=== PATIENT | female | born 1955 | race Caucasian/White ===

== ENCOUNTER 2016-09-14 22:42 | Emergency (ER) | payer OTHER ==
[2016-09-15] MEDS ORDERED: FENTANYL CITRATE INJ/PF 100 MCG/2 ML AMPUL IV ONE ×2 (02:23→04:37)
[2016-09-15] MEDS ORDERED: NORMAL SALINE 500 ML IV ONE (03:16)
[2016-09-15] MEDS ORDERED: PROPOFOL INJ 200 MG/20 ML VIAL IV ONE (03:18)
--- NOTE | 2016-09-15 03:19 | RADIOLOGY REPORT (SQ) ---
EXAM DESCRIPTION: ANKLE RIGHT COMPLETE COMPLETED DATE/TIME: 09/15/2016 2:59 am REASON FOR STUDY: fall COMPARISON: None. NUMBER OF VIEWS: Three views. TECHNIQUE: AP, lateral, and oblique radiographic images acquired of the right ankle. LIMITATIONS: None. FINDINGS: MINERALIZATION: Normal. BONES: Comminuted intra-articular fracture of the right distal tibia and fibula with complete posteri or dislocation of the talotibial joint. The tibial fracture component involves the medial malleolus, posterior malleolus, and lateral tibial plafond with up to 1.1 cm distraction. The comminuted dista l fibular fracture measures 6.5 cm in length extending into the lateral malleolus with moderate media l angulation. No evidence of healing. Small to moderate calcaneal enthesophytes. Moderate ankle sw elling. JOINTS: No effusions. SOFT TISSUES: No soft tissue swelling. No foreign body. OTHER: No other significant finding. IMPRESSION: Comminuted intra-articular fracture of the right distal tibia and fibula with complete p osterior dislocation of the talotibial joint. TECHNICAL DOCUMENTATION: JOB ID: [id number] [employer]- All Rights Reserved
--- NOTE | 2016-09-15 04:41 | RADIOLOGY REPORT (SQ) ---
EXAM DESCRIPTION: ANKLE RIGHT AP/LATERAL COMPLETED DATE/TIME: 09/15/2016 4:28 am REASON FOR STUDY: post reduction COMPARISON: Same day, 0244 hours. NUMBER OF VIEWS: Two views. TECHNIQUE: AP and lateral radiographic images acquired of the right ankle. LIMITATIONS: None. FINDINGS: MINERALIZATION: Normal. BONES: Interval reduction near anatomic alignment of distal right tibial and fibular fractures and ta lotibial joint postreduction as seen through casting -bandaging material. There is 0.4 cm residual d istraction of fibular fragments. JOINTS: No effusions. SOFT TISSUES: No soft tissue swelling. No foreign body. OTHER: No other significant finding. IMPRESSION: Interval reduction of right ankle fractures and previous dislocation as seen through rony ting-bandaging material. TECHNICAL DOCUMENTATION: JOB ID: [id number] [employer]- All Rights Reserved
[2016-09-15] MEDS ORDERED: HYDROCODONE/ACETAMINOPHEN 5-325 MG 6 TAB/DSPK PO PRN (05:13)
--- NOTE | 2016-09-15 05:18 | ER Document Report ---
ED General - General Chief Complaint: Ankle Injury Stated Complaint: FALL/ANKLE PAIN Time Seen by Provider: 09/15/16 02:16 Notes: Patient is a 61-year-old female presents with complaint of her right ankle. Patient says she slipped going down the steps and felt a pop in her right ankle. She has been unable to bear weight since. No injury to her knee or hip or pelvis. No other complaints at this time. She complains of some tingling sensation in her foot. TRAVEL OUTSIDE OF THE [place] IN LAST 30 DAYS: No - Related Data Allergies/Adverse Reactions: amoxicillin Allergy (Verified 09/14/16 22:53) Past Medical History - Social History Smoking Status: Never Smoker Chew tobacco use (# tins/day): No Frequency of alcohol use: None Drug Abuse: None Family History: Reviewed & Not Pertinent Patient has suicidal ideation: No Patient has homicidal ideation: No Renal/ Medical History: Denies: Hx Peritoneal Dialysis Review of Systems - Review of Systems Notes: My Normal Review Basic REVIEW OF SYSTEMS: CONSTITUTIONAL : Denies fever, chills, or sweats. Denies recent illness. RESPIRATORY: Denies cough, cold, or chest congestion. Denies shortness of breath, difficulty breathing, or wheezing. GASTROINTESTINAL: Denies abdominal pain. Denies nausea, vomiting, or diarrhea. Denies constipation. Last BM: MUSCULOSKELETAL: Right ankle pain. SKIN: Denies rash or skin lesions. NEUROLOGICAL: Denies altered mental status or loss of consciousness. Denies headache. Denies weakness or paralysis or loss of use of either side. Denies problems with gait or speech. Denies sensory or motor loss. ALL OTHER SYSTEMS REVIEWED AND NEGATIVE. Physical Exam - Vital signs Vitals: Temp Pulse Resp BP Pulse Ox 98.3 F 72 19 151/80 H 96 09/14/16 22:51 09/14/16 22:51 09/14/16 22:51 09/14/16 22:51 09/14/16 22:51 - Notes Notes: General Appearance: Well nourished, alert, cooperative, no acute distress, moderate obvious discomfort. Vitals: reviewed, See vital signs table. Head: no swelling or tenderness to the head Eyes: PERRL, EOMI, Conjuctiva clear Mouth: No decreasd moisture Lungs: No wheezing, No rales, No rhonci, No accessory muscle use, good air exchange bilaterally. Heart: Normal rate, Regular rythm, No murmur, no rub Extremities: strength 5/5 in all extremities, good pulses in all extremities, obvious deformity to the right ankle with some bruising. Sarahy tender with any touch or movement of right ankle. No pain to palpation of right knee or fibular head.good capilary refil in toes of right foot. Good pedal pulses. Hips are nontender., no edema. Skin: warm, dry, appropriate color, no rash Neuro: speech clear, oriented x 3, normal affect, responds appropriately to questions. distal sensaiton intact. Course - Vital Signs Vital signs: Temp Pulse Resp BP Pulse Ox 97.6 F 94 18 120/77 100 09/15/16 05:45 09/15/16 05:45 09/15/16 05:45 09/15/16 05:45 09/15/16 05:45 Procedures - Conscious Sedation Conscious sedation Consent obtained: Yes Prior complications: Procedural sedation Pt with a mild systemic disease.: P2. - ASA Classification. Airway Evaluation: Normal anatomy Mallampati Classification: Class 1 Used during procedure: Suction available, IV access obtained, Pulse ox on pt., chimney sweeper on pt. Medications administered: Diprivan Reversal agents: None Complications: No Notes: Patient was given a total of 120mg of Propofol. - Immobilization Right Ankle Pre-Proc Neuro Vasc Exam: Normal Immobilizer type: Crutches, Posterior ankle, Sugar tong Performed by: Provider Post-Proc Neuro Vasc Exam: Normal Notes: 09/15/16 06:54 I personally placed the splint on the patient's leg. The use plaster. I initially placed a posterior short leg splint. Follow this by a sugar tong stirrup splint over the medial lateral aspect of the ankle for reinforcement. This was also plastered. Before applying the splint I did the flap the foot and ankle large amount of padding. Splint was then placed and then covered with an Carl bandage. Patient has good capillary refill good distal sensation. The splints did harden in appropriate position. Patient tolerated procedure well without complications. Dictation of this chart was performed using voice recognition software; therefore, there may be some unintended grammatical errors. - Joint Reduction/Fracture Care Right Ankle Consent obtained: Yes Conscious sedation: Yes Pre-procedure NV exam: Yes Fracture: Closed Manipulation comment: traction Post-procedure NV exam: Yes Post-reduction x-ray: Joint reduced Reduction attempts: 1 Complications: No Discharge - Discharge Clinical Impression: Ankle fracture, bimalleolar, closed Qualifiers: Encounter type: initial encounter Laterality: right Qualified Code(s): S82.841A - Displaced bimalleolar fracture of right lower leg, initial encounter for closed fracture Condition: Good Additional Instructions: Splitn Precautions A splint has been placed. This will protect the area while healing begins. Your problem does NOT normally require a cast. It MUST, however, be held still! Keep the splint on ALL THE TIME until instructed to remove it by the doctor. As you begin to use the area, be careful. You shouldn't do anything which causes discomfort -- you may disturb the injury even with the splint in place. After the initial period of rest and elevation, if splint does not prevent pain when you move, come back. You may require placement of a different splint , or a cast. If there is unexpected severe pain, or numbness, discoloration, or swelling beyond the splint, you should return at once. If you feel that the splint has broken or become loose, come back. Pleae return to [facility] ER if you have worsening pain, new weakness or numbness in your foot, or if you have any further concerns. Please follow up with an orthopedist in 5-7 days for close reevaluation and treatment of your ankle fracture. Prescriptions: Hydrocodone/Acetaminophen [Benson 5-325 mg Tablet] 1 tab PO Q4 PRN #24 tablet PRN Reason: For Breakthrough Pain Forms: Return to Work Referrals: NUNU PAL MD [ACTIVE STAFF] - Follow up in 3-5 days
[2016-09-15 07:02] VITALS: BP 145/79
== END 2016-09-15 07:03 | disposition home or self-care (01) ==
LOC: ER 22:42
PROC: 2W3QX1Z Immobilization of Right Lower Leg using Splint (ICD-10-PCS; principal; 2016-09-14)
DX: S82.841A Displaced bimalleolar fracture of right lower leg, initial encounter for closed fracture (principal); M25.571 Pain in right ankle and joints of right foot; W10.9XXA Fall (on) (from) unspecified stairs and steps, initial encounter
CPT/HCPCS: 99284; 96360; 99152; 73600; 73610; 29515; J3010; J7040; J2704